=== PATIENT | male | born 1990 | race African-American/Black ===

== ENCOUNTER → 2017-04-24 | Outpatient (CLI) | payer BC ==
--- NOTE | ~2017-04-24 | 2DMMODE ---
[facility] [place] [address] 2 D/M-MODE ECHOCARDIOGRAM Name: GIL JOHNSTON Room #: REG CL [facility]#: [id number] Admission: 04/24/17 Attend Phys: Placido Walker, Discharge: Date of : 89 Date of Service: 04/24/17 1208 Report #: [id number] THIS REPORT FOR: //name// APPROVED REPORT Study performed: 04/24/2017 11:01:38 EXAM: Comprehensive 2D, Doppler, and color-flow Echocardiogram Patient Location: Echo lab Status: routine BSA: 1.68 BP: 117/80 mmHg Other Information Study Quality: Good Indications Palpitations 2D Dimensions RVDd: 31.92 mm LVEF(%): 60.67 (>50%) IVSd: 8.04 (7-11mm) LVOT Diam: 16.32 (18-24mm) LVDd: 43.92 mm PWd: 8.45 (7-11mm) Ascending Ao: 22.94 (22-36mm) LVDs: 29.77 (25-40mm) Aortic Root: 23.72 mm IVC: 13.00 mm Townsend's LVEF: 60.67 % Volumes Left Atrial Volume (Systole) Single Plane 4CH: 30.06 mL Single Plane 2CH: 32.11 mL LA ESV Index: 20.00 mL/m2 Aortic Valve AoV Peak Sampson.: 0.94 m/s AO Peak Gr.: 3.55 mmHg LVOT Max P.18 mmHg LVOT Max V: 0.74 m/s REN Vmax: 1.64 cm2 Mitral Valve E/A Ratio: 1.6 MV Decel. Time: 173.61 ms MV E Max Sampson.: 0.99 m/s [facility] [place] [address] 2 D/M-MODE ECHOCARDIOGRAM Name: GIL JOHNSTON [facility] Room #: [id number] Admission: 04/24/17 Attend Phys: Placido Walker, Discharge: Date of : 89 Date of Service: 04/24/17 1208 Report #: [id number] MV A Sampson.: 0.60 m/s MV PHT: 50.35 ms IVRT: 115.34 ms Pulmonary Valve PV Peak Sampson.: 0.90 m/s PV Peak Gr.: 3.22 mmHg Pulmonary Vein P Vein S: 0.35 m/s P Vein A: 0.20 m/s P Vein D: 0.57 m/s P Vein A Dur.: 110.7 msec P Vein S/D Ratio: 0.61 Tricuspid Valve TR Peak Sampson.: 2.18 m/s RAP Estimate: 5.00 mmHg TR Peak Gr.: 19.02 mmHg Left Ventricle The left ventricle is normal size. There is normal left ventricular wall thickness. The left ventricular systolic function is normal. The left ventricular ejection fraction is within the normal range. LVEF is 65%. The left ventricular diastolic function is normal. Right Ventricle The right ventricle is normal size. The right ventricular systolic function is normal. Atria The left atrium size is normal. The right atrium size is normal. Aortic Valve The aortic valve is normal in structure. No aortic regurgitation is present. There is no aortic valvular stenosis. Mitral Valve The mitral valve is normal in structure. There is no mitral valve regurgitation noted. No evidence of mitral valve stenosis. Tricuspid Valve The tricuspid valve is normal in structure. There is trace tricuspid regurgitation. The right atrial pressure is estimated at 5 mmHg. PAP is estimated at 24 mmHg. Pulmonic Valve The pulmonary valve is normal in structure. Trace to mild pulmonic regurgitation. [address] [address] 2 D/M-MODE ECHOCARDIOGRAM Name: GIL JOHNSTON Room #: REG CL [facility]#: [id number] Admission: 04/24/17 Attend Phys: Placido Walker, Discharge: Date of : 89 Date of Service: 04/24/17 1208 Report #: [id number] Great Vessels The aortic root is normal in size. IVC is normal in size and collapses >50% with inspiration. <Conclusion> The left ventricle is normal size. LVEF is 65%. The aortic valve is normal in structure. The mitral valve is normal in structure. The tricuspid valve is normal in structure. There is trace tricuspid regurgitation. The right atrial pressure is estimated at 5 mmHg. PAP is estimated at 24 mmHg. <ELECTRONICALLY SIGNED> By: Aquiles Winn MD 04/24/17 1208 1208 1208 Aquiles Winn MD /INF
== END ==
LOC: CV 09:25
DX: R00.2 Palpitations (principal)

== ENCOUNTER → 2017-05-14 | Outpatient (CLI) | payer BC | LOC: ULTRA 13:54 | DX: I83.92 Asymptomatic varicose veins of left lower extremity (principal); N50.811 Right testicular pain ==